=== PATIENT | female | born 2000 ===

== ENCOUNTER 2020-08-10 09:26 | Emergency (ER) | payer OTHER, SELFPAY ==
[2020-08-10 09:34] VITALS: BP 107/69; PULSE 83; RESP 10; TEMP 36.1; O2SAT 100
--- NOTE | 2020-08-10 10:24 | ED.GENADULT ---
HPI - General Adult General Chief complaint: Unspecified <Pao Lorenz PA-C - Last Filed: 08/10/20 10:35> Stated complaint: Finger Nail Issue <Pao Lorenz PA-C - Last Filed: 08/10/20 10:35> Time Seen by Provider: 08/10/20 10:06 <Pao Lorenz PA-C - Last Filed: 08/10/20 10:35> Source: patient <JOANN Slade Last Filed: 08/10/20 10:35> Mode of arrival: ambulatory <JOANN Slade Last Filed: 08/10/20 10:35> Limitations: no limitations <Pao Lorenz PA-C - Last Filed: 08/10/20 10:35> History of Present Illness HPI narrative: Patient presents with chief complaint of injury to the nailbed of her left fifth digit that she sustained prior to arrival. Patient states that her artificial nail became caught and lifted her fingernail. There is minimal bleeding. Patient states she is up-to-date with her tetanus. Patient reports cuticle area is very tender. Patient denies any loss of range of motion or bony tenderness. <Pao Lorenz PA-C - Last Filed: 08/10/20 10:35> Related Data Allergies/adverse reactions: Allergies Allergy/AdvReac Type Severity Reaction Status Date / Time No Known Allergies Allergy Verified 08/10/20 09:40 <Pao Lorenz PA-C - Last Filed: 08/10/20 10:35> Review of Systems Review of Systems: Narrative: CONSTITUTIONAL: Denies fever, chills, or sweats. EYES: Denies visual changes, redness, or discharge. ENT: Denies rhinorrhea, congestion, sore throat, or otalgia. CARDIOVASCULAR: Denies chest pain, palpitations, or edema. RESPIRATORY: Denies cough or dyspnea. GASTROINTESTINAL: Denies abdominal pain, nausea, vomiting, or diarrhea. GENITOURINARY: Denies dysuria or hematuria. SKIN: Reports nail injury denies rash or itching. MUSCULOSKELETAL: Denies back pain, joint pain, or myalgia. NEUROLOGIC: Denies headache, numbness, dizziness, or weakness. PSYCHIATRIC: Denies anxiety or depression. <Pao Lorenz PA-C - Last Filed: 08/10/20 10:35> PMFSH Family History Family History: Family History (Updated 01/14/18 @ 18:19 by DOCTOR UNKNOWN) Father Family history of hypercholesterolemia Hypertension Other Diabetes mellitus Family history of arthritis Family history of malignant neoplasm of breast <JOANN Slade Last Filed: 08/10/20 10:35> Social History Social History: Social History Smoking status: Never smoker Alcohol intake: never Gender identity (if verbalized by the patient): Female <Pao Lorenz PA-C - Last Filed: 08/10/20 10:35> Exam Narrative: Exam Narrative: GENERAL: Well-appearing, well-nourished, and in no acute distress. HEAD: Normocephalic, atraumatic. EYES: PERRLA and EOMI. NECK: Supple. No adenopathy or masses. CHEST: Clear to auscultation. No respiratory distress. No wheezes rales or rhonchi HEART: Regular rate and rhythm. No murmur heard. Normal peripheral pulses. EXTREMITIES: No zonia tenderness to left 5th digit. Normal range of motion. No edema. SKIN: There is swelling to the right of the left 5th nailbed with lifting near the matrix, but the nail is not removed or actively bleeding. Tender to palpation. Warm, dry, no rash. NEURO: No focal deficits. Alert and oriented x3. PSYCH: Normal mood and affect. <JOANN Slade Last Filed: 08/10/20 10:35> Course Vital Signs Vital signs: Vital Signs Temperature 97 F L 08/10/20 09:34 Pulse Rate 83 08/10/20 09:34 Respiratory Rate 10 L 08/10/20 09:34 Blood Pressure 107/69 08/10/20 09:34 Pulse Oximetry 100 08/10/20 09:34 Temperature 97 F L 08/10/20 09:34 Pulse Rate 62 08/10/20 10:41 Respiratory Rate 20 08/10/20 10:41 Blood Pressure 107/69 08/10/20 09:34 Pulse Oximetry 100 08/10/20 10:41 <JOANN Slade Last Filed: 08/10/20 10:35> Vital Signs Temperature 97 F L 08/10/20 09:34 Pulse Rate 83 08/10/20 09:34 Respiratory Rate 10 L 08/10/20 09:34 Blood P
[2020-08-10 10:41] VITALS: PULSE 62; RESP 20; O2SAT 100
== END 2020-08-10 10:42 | disposition home or self-care (01) ==
PROVIDERS: Emergency Provider General Practice; PCP Family Medicine
DX: S69.92XA Unspecified injury of left wrist, hand and finger(s), initial encounter (principal); X58.XXXA Exposure to other specified factors, initial encounter
CPT/HCPCS: 99282